=== PATIENT | female | born 1955 | race Hispanic/Latino ===

== ENCOUNTER → 2018-03-18 | Outpatient (CLI) | payer BC ==
[~2018-03-18] MED LIST: DIATRIZOATE MEGL/DIATRIZOA SOD 30 ML BTL PO ONE; IOPAMIDOL 370 MG/ML 200 ML INFUS..BTL INJ ONE; SODIUM CHLORIDE 0.9% 50ML 50 ML ONE
[2018-03-18 10:07] LABS: BLOOD UREA NITROGEN 14 mg/dL (7-26); BUN/CREATININE RATIO 17 (6-25); CREATININE, SERUM 0.83 mg/dL (0.57-1.11); EST GLOMERULAR FILTRATION RATE > 60 ML/MIN (60-)
--- NOTE | 2018-03-18 12:01 | Diagnostic Imaging Report ---
PROCEDURE: CT ABDOMEN AND PELVIS WITH CONTRAST TECHNIQUE: The abdomen and pelvis were scanned utilizing a multidetector helical scanner from the diaphragm to the lesser trochanter after the IV administration of 100 cc of Isovue 370 and the oral administration of Gastroview and water. Coronal and sagittal multiplanar reformations were obtained. COMPARISON: None. INDICATIONS: HERNIA FINDINGS: LOWER THORAX: Normal. HEPATOBILIARY: No focal hepatic lesions. No biliary ductal dilatation. SPLEEN: No splenomegaly. PANCREAS: No focal masses or ductal dilatation. ADRENALS: No adrenal nodules. KIDNEYS/URETERS: No hydronephrosis, stones, or solid mass lesions. PELVIC ORGANS/BLADDER: Unremarkable. PERITONEUM / RETROPERITONEUM: No free air or fluid. A bilobed azael-umbilical hernia is present with the fascial defect measuring 3.1 cm on series 300 image 74. Omental fat is noted within the hernia sac. No bowel is present in the hernia sac. Bilateral fat containing inguinal hernias, left greater than right, series 2 image 74. LYMPH NODES: No lymphadenopathy. VESSELS: Unremarkable. GI TRACT: No distention or wall thickening. Normal appendix. Moderate amount of retained feces limits intraluminal evaluation of the colon. BONES AND SOFT TISSUES: Unremarkable. IMPRESSION: 1. No acute abnormality of the abdomen and pelvis. 2. Umbilical hernia. Bilateral inguinal hernias. Dictated by: Segundo Hoyt M.D. on 03/18/2018 at 12:02 Electronically approved by: Segundo Hoyt M.D. on 03/18/2018 at 12:02
== END ==
LOC: CT 09:15
PROVIDERS: ATTEND Surgery
DX: K42.9 Umbilical hernia without obstruction or gangrene (principal); K40.20 Bilateral inguinal hernia, without obstruction or gangrene, not specified as recurrent
CPT/HCPCS: 36415; 74177; 82565; 84520; Q9967

== ENCOUNTER 2018-04-09 07:07 | Inpatient (IN) | payer BC ==
[~2018-04-09 07:07] MED LIST changes: -DIATRIZOATE MEGL/DIATRIZOA SOD 30 ML BTL PO ONE; -IOPAMIDOL 370 MG/ML 200 ML INFUS..BTL INJ ONE; +LISINOPRIL10 MG PO; -SODIUM CHLORIDE 0.9% 50ML 50 ML ONE
--- OUTSIDE RECORDS SUMMARY | 2018-04-09 07:09 | XMS REPORT ---
Author Author [facility], [place] Address Unknown Phone Unavailable Care Team Providers Care Quality Improvement Consultant Name Role Phone JUSTINO JULIEN Unavailable Unavailable Problems This patient has no known problems. Allergies, Adverse Reactions, Alerts This patient has no known allergies or adverse reactions. Medications This patient has no known medications. Results Test Description Test Time Test Comments Text Results Atomic Results Result Comments CT ABDOMEN/PELVIS W [place] [address] Patient Name: JASON MARTINI MR #: [id number] : 1955 Age/Sex: 62/F Req #: [id number] Adm Physician: Ordered by: JUSTINO JULIEN MD Report #: [id number] Location: CT Room/Bed: Procedure: [id number] CT/CT ABDOMEN/PELVIS W Exam Date: 03/18/18 Exam Time: 1020 REPORT STATUS: Signed PROCEDURE: CT ABDOMEN AND PELVIS WITH CONTRAST TECHNIQUE: The abdomen and pelvis were scanned utilizing a multidetector helical scanner from the diaphragm to the lesser trochanter after the IV administration of 100 cc of Isovue 370 and the oral administration of Gastroview and water. Coronal and sagittal multiplanar reformations were obtained. COMPARISON: None. INDICATIONS : HERNIA FINDINGS: LOWER THORAX: Normal. HEPATOBILIARY: No focal hepatic lesions. No biliary ductal dilatation. SPLEEN: No splenomegaly. PANCREAS: No focal masses or ductal dilatation. ADRENALS: No adrenal nodules. KIDNEYS/URETERS: No hydronephrosis, stones, or solid mass lesions. PELVIC ORGANS/BLADDER: Unremarkable. PERITONEUM / RETROPERITONEUM: No free air or fluid. A bilobed azael-umbilical hernia is present with the fascial defect measuring 3.1 cm on series 300 image 74. Omental fat is noted within the hernia sac. No bowel is present in the hernia sac. Bilateral fat containing inguinal hernias, left greater than right, series 2 image 74. LYMPH NODES: No lymphadenopathy. VESSELS: Unremarkable. GI TRACT: No distention or wall thickening. Normal appendix. Moderate amount of retained feces limits intraluminal evaluation of the colon. BONES AND SOFT TISSUES: Unremarkable. IMPRESSION: 1. No acute abnormality of the abdomen and pelvis. 2. Umbilical hernia. Bilateral inguinal hernias. Dictated by: Gilbert Canales M.D. on 2017 at 12:02 Electronically approved by: Gilbert Canales M.D. on 2017 at 12:02 Dictated By: GILBERT CANALES MD 1202 Transcribed By: PADMINI on 03/18/18 1202 COPY TO: JUSTINO JULIEN MD
[2018-04-09] MEDS ORDERED: BUPIVACAINE 0.25%/EPI 30ML SDV INJ ONE ×2 (08:20→14:45)
[2018-04-09] MEDS ORDERED: MIDAZOLAM HCL 2 MG/2 ML VIAL ONE (11:50)
[2018-04-09] MEDS ORDERED: FENTANYL CITRATE/PF 100MCG/2 ML INJ ONE (11:50)
[2018-04-09] MEDS ORDERED: NEOSTIGMINE 1 MG/ML 10ML VIAL ONE (14:27)
[2018-04-09] MEDS ORDERED: BACITRACIN 50,000 UNIT VIAL ONE (14:27)
[2018-04-09] MEDS: DEXTROSE 5%/LACTATED RINGERS 1,000 ML IV SCH ×2 (15:39→21:57)
[2018-04-09] MEDS ORDERED: HYDROMORPHONE 1MG/1ML INJ IV PRN (15:45)
[2018-04-09] MEDS ORDERED: ONDANSETRON HCL INJ 2 MG/ML VIAL IV PRN (15:45)
[2018-04-09] MEDS ORDERED: METOCLOPRAMIDE HCL 10 MG/2ML VIAL ONE (16:56)
[2018-04-09 17:00] VITALS: BP 152/66
[2018-04-09] MEDS ORDERED: HYDROMORPHONE 2MG/ML INJ IV PRN (17:00)
[2018-04-09] MEDS ORDERED: CEFAZOLIN SOD 1 GM/NS 50ML 50 ML IV SCH (18:00)
[2018-04-09] MEDS: CEFAZOLIN SOD 1 GM VIAL IV SCH ×2 (18:11→23:35)
[2018-04-09] MEDS: PANTOPRAZOLE 40 MG 10ML VIAL IV SCH (18:11)
[2018-04-09 18:38] VITALS: BP 135/67
[2018-04-09] MEDS ORDERED: ROCURONIUM BROMIDE 10 MG/ML 5ML VIAL ONE (18:51)
[2018-04-09] MEDS ORDERED: CEFAZOLIN SOD 1 GM VIAL ONE (18:51)
[2018-04-09] MEDS ORDERED: PROPOFOL IV EMULSION 10 MG/ML 20 ML VIAL ONE (18:51)
[2018-04-09] MEDS ORDERED: ONDANSETRON HCL INJ 2 MG/ML VIAL ONE (18:51)
[2018-04-09] MEDS ORDERED: KETOROLAC TROMETHAMINE 30 MG/ML VIAL ONE (18:51)
[2018-04-09] MEDS ORDERED: SEVOFLURANE INHAL SOLN 250 ML PEN BTL ONE (18:51)
[2018-04-09] MEDS ORDERED: LIDOCAINE HCL 2% LOCAL INJ 5 ML SDV VIAL INJ ONE (18:51)
[2018-04-09] MEDS ORDERED: DEXAMETHASONE SOD PHOS INJ 4 MG/ML VIAL ONE (18:51)
[2018-04-09 21:12] VITALS: BP 141/67
[2018-04-09 21:13] VITALS: BP 141/67
--- NOTE | 2018-04-09 23:04 | Operative Report ---
DATE OF PROCEDURE: April 09, 2018 PREOPERATIVE DIAGNOSIS: Ventral hernia. POSTOPERATIVE DIAGNOSIS: Ventral hernia. PROCEDURE PERFORMED: Scar revision and repair of ventral hernia with onlay mesh polypropylene. ANESTHESIA: General endotracheal. BECK OPERATOR: MONSTER Spencer ESTIMATED BLOOD LOSS: Less than 100 mL. DRAINS: Two 10-mm flat Serge-Weiss drain. COMPLICATIONS: None. INDICATIONS AND FINDINGS: The patient is a pleasant 62-year-old female, who had undergone laparoscopic cholecystectomy in the past and now presents with a herniation at the area of the umbilical port. Of note is the fact that this patient is obese and had 3 C-sections in the past. INTRAOPERATIVE FINDINGS: The patient had a ventral hernia located in the periumbilical area, where the pore was measured about 3 or 4 cm. Patient had a scar, had contracted in the lower aspect of the midline in the abdomen from the previous 3 C-sections and that required revision to properly close the skin. DESCRIPTION OF PROCEDURE: With the patient lying on the operative table in the supine position after administration of general anesthesia, she was prepped and draped for repair of ventral hernia at the umbilical port site. Elliptical incision was made around the old scar, which was contracted in the lower aspect of and the old scar where the contracture was excised down to the fat. The dissection was continued superiorly and inferiorly down to the fascia until we came across the hernia. The hernia sac was excised. It contained part omentum, small amounts of omentum, but it was empty and the sac was excised. The intra-abdominal cavity was entered and then, adhesions of omentum to the anterior abdominal wall were sharply lysed to free the abdominal wall for closure. After ascertaining that hemostasis was adequate, we closed the 4-cm defect with the series of interrupted 0-Ethibond sutures. We then reinforced the closure with an onlay placement of the polypropylene mesh 66 x 6. We secured the mesh with a series of interrupted 2-Ethibond sutures and then also applied absorbable Ethicon martin to secure the closure. The patient was then given a regional block with a total of 40 mL of Marcaine with epinephrine into the fascia and the skin and then the wound was closed in layers using combination of 0 and 2-0 catgut chromic for the soft tissues. The skin was closed using a combination of 2-0 and 3-0 silk. Two 10-mm flat Serge-Weiss drains were placed to drain the wound and brought out through a stab wound in the right and left lower quadrant of the abdomen and secured there with 3-0 silk. Sterile dressing was applied. The patient tolerated the procedure well, was taken to recovery room in stable condition. At the end of the procedure, I could not find anyone in the waiting area for the patient. Job#: [id number] CQ
[2018-04-10] VITALS (8 sets, daily range): BP systolic 135–160; BP diastolic 57–75
[2018-04-10] MEDS: CEFAZOLIN SOD 1 GM VIAL IV SCH ×4 (05:37→23:40)
[2018-04-10 05:53] LABS: BASOPHILS % 0.2 % (0.0-1.0); HEMATOCRIT 38.9 % (34.2-44.1); HEMOGLOBIN 12.7 g/dL (12.0-16.0); LYMPHOCYTES # (AUTO) 1.9 (1.0-3.2); LYMPHOCYTES % 16.1 % (18.0-39.1); MEAN CORPUSCULAR HEMOGLOBIN 28.3 pg (28-32); MEAN CORPUSCULAR HGB CONC 32.6 g/dL (31-35); MEAN CORPUSCULAR VOLUME 86.6 fL (81-99); MONOCYTES # (AUTO) 1.1 (0.2-0.8); MONOCYTES % 8.9 % (4.4-11.3); NEUTROPHILS # (AUTO) 8.8 (2.1-6.9); NEUTROPHILS % 74.5 % (38.7-80.0); PLATELET COUNT 226 x10e3/uL (140-360); RED BLOOD COUNT 4.49 x10e6/uL (3.6-5.1); RED CELL DISTRIBUTION WIDTH 12.9 % (11.7-14.4)
[2018-04-10 06:11] LABS: BLOOD UREA NITROGEN 16 mg/dL (7-26); BUN/CREATININE RATIO 21 (6-25); CALCIUM 8.6 mg/dL (8.4-10.2); CARBON DIOXIDE 24 mmol/L (22-29); CHLORIDE 105 mmol/L (98-107); CREATININE, SERUM 0.77 mg/dL (0.57-1.11); EST GLOMERULAR FILTRATION RATE > 60 ML/MIN (60-); GLUCOSE 153 mg/dL (74-118); SODIUM 138 mmol/L (136-145)
[2018-04-10] MEDS: DEXTROSE 5%/LACTATED RINGERS 1,000 ML IV SCH ×2 (08:39→19:05)
[2018-04-10] MEDS: PANTOPRAZOLE 40 MG 10ML VIAL IV SCH (17:17)
[2018-04-10] MEDS: ONDANSETRON HCL 4 MG ORAL DISINTEGRATING TAB SL PRN (18:22)
[2018-04-10] MEDS ORDERED: PROMETHAZINE 12.5MG/ NACL 0.9% 12.5 MG/50 ML BAG IV PRN (18:30)
[2018-04-10] MEDS: HYDROCODONE/APAP 7.5MG-325MG 1 EA TAB PO PRN (23:43)
[2018-04-11] VITALS (7 sets, daily range): BP systolic 130–166; BP diastolic 68–89
[2018-04-11] MEDS: CEFAZOLIN SOD 1 GM VIAL IV SCH ×4 (05:40→23:18)
[2018-04-11] MEDS: HYDROCODONE/APAP 7.5MG-325MG 1 EA TAB PO PRN ×4 (05:40→21:16)
[2018-04-11 06:03] LABS: BASOPHILS % 0.3 % (0.0-1.0); EOSINOPHILS % 0.1 % (0.0-6.0); HEMATOCRIT 38.8 % (34.2-44.1); HEMOGLOBIN 12.4 g/dL (12.0-16.0); LYMPHOCYTES # (AUTO) 1.7 (1.0-3.2); LYMPHOCYTES % 18.5 % (18.0-39.1); MEAN CORPUSCULAR HEMOGLOBIN 28.7 pg (28-32); MONOCYTES # (AUTO) 0.8 (0.2-0.8); MONOCYTES % 8.1 % (4.4-11.3); NEUTROPHILS # (AUTO) 6.8 (2.1-6.9); NEUTROPHILS % 72.5 % (38.7-80.0); PLATELET COUNT 206 x10e3/uL (140-360); RED BLOOD COUNT 4.32 x10e6/uL (3.6-5.1); RED CELL DISTRIBUTION WIDTH 13.1 % (11.7-14.4)
[2018-04-11 06:07] LABS: MEAN CORPUSCULAR VOLUME 89.8 fL (81-99)
[2018-04-11 06:34] LABS: ANION GAP 11.2 mmol/L (8-16); BLOOD UREA NITROGEN 12 mg/dL (7-26); BUN/CREATININE RATIO 15 (6-25); CALCIUM 8.9 mg/dL (8.4-10.2); CARBON DIOXIDE 25 mmol/L (22-29); CHLORIDE 105 mmol/L (98-107); CREATININE, SERUM 0.79 mg/dL (0.57-1.11); EST GLOMERULAR FILTRATION RATE > 60 ML/MIN (60-); GLUCOSE 151 mg/dL (74-118); POTASSIUM 4.2 mmol/L (3.5-5.1); SODIUM 137 mmol/L (136-145)
[2018-04-11] MEDS: ONDANSETRON HCL 4 MG ORAL DISINTEGRATING TAB SL PRN ×2 (13:25→18:14)
[2018-04-11] MEDS: DEXTROSE 5%/LACTATED RINGERS 1,000 ML IV SCH (13:47)
[2018-04-11] MEDS: PANTOPRAZOLE 40 MG 10ML VIAL IV SCH (15:33)
[2018-04-12 00:56] VITALS: BP 121/57
[2018-04-12 04:00] VITALS: BP 123/61
[2018-04-12] MEDS: HYDROCODONE/APAP 7.5MG-325MG 1 EA TAB PO PRN ×2 (05:00→11:45)
[2018-04-12] MEDS: CEFAZOLIN SOD 1 GM VIAL IV SCH (06:02)
[2018-04-12 07:22] LABS: BASOPHILS % 0.2 % (0.0-1.0); EOSINOPHILS # (AUTO) 0.1 (0.0-0.4); EOSINOPHILS % 0.6 % (0.0-6.0); HEMATOCRIT 38.8 % (34.2-44.1); HEMOGLOBIN 12.4 g/dL (12.0-16.0); LYMPHOCYTES # (AUTO) 1.8 (1.0-3.2); LYMPHOCYTES % 20.6 % (18.0-39.1); MEAN CORPUSCULAR HEMOGLOBIN 28.6 pg (28-32); MEAN CORPUSCULAR VOLUME 89.6 fL (81-99); MONOCYTES # (AUTO) 0.5 (0.2-0.8); MONOCYTES % 6.1 % (4.4-11.3); NEUTROPHILS # (AUTO) 6.3 (2.1-6.9); PLATELET COUNT 215 x10e3/uL (140-360); RED BLOOD COUNT 4.33 x10e6/uL (3.6-5.1); RED CELL DISTRIBUTION WIDTH 12.9 % (11.7-14.4)
[2018-04-12 07:39] LABS: ANION GAP 11.3 mmol/L (8-16); BLOOD UREA NITROGEN 14 mg/dL (7-26); BUN/CREATININE RATIO 18 (6-25); CALCIUM 8.8 mg/dL (8.4-10.2); CARBON DIOXIDE 29 mmol/L (22-29); CHLORIDE 101 mmol/L (98-107); CREATININE, SERUM 0.79 mg/dL (0.57-1.11); EST GLOMERULAR FILTRATION RATE > 60 ML/MIN (60-); GLUCOSE 145 mg/dL (74-118); POTASSIUM 4.3 mmol/L (3.5-5.1); SODIUM 137 mmol/L (136-145)
[2018-04-12 08:12] VITALS: BP 153/66
[2018-04-12] MEDS: DEXTROSE 5%/LACTATED RINGERS 1,000 ML IV SCH (10:41)
[2018-04-12 11:30] VITALS: BP 158/74
[2018-04-12 11:45] VITALS: BP 153/66
--- NOTE | 2018-04-12 14:14 | Discharge Summary ---
DISCHARGE DIAGNOSIS: Ventral hernia. PROCEDURE PERFORMED: On admission, scar revision and repair of ventral hernia with onlay polypropylene mesh by Dr. Sarina Yeung. HISTORY OF PRESENT ILLNESS AND HOSPITALIZATION COURSE: The patient is a pleasant 62-year-old female who had undergone laparoscopic cholecystectomy in the past by me, and now presents with herniation in the area of the umbilical port. Of note is the fact that this patient is obese and had 3 C-sections in the past. HOSPITALIZATION COURSE: Following admission, the patient underwent the previously described procedure on the previously described date. Postoperative course was unremarkable. The patient's diet was advanced, and she was tolerating a regular diet the day of discharge. She was afebrile. Two Serge-Weiss drains that were placed in the wound were removed the day of discharge. She was discharged with no work tolerance for 8 weeks postop. She was given instructions. She will be followed up with my office following discharge to remove martin. DISCHARGE MEDICATIONS: Tylenol No.3 one p.o. q.4-6 h. p.r.n. for pain, #40, and Phenergan 1 p.o. q.4-6 h. p.r.n. for nausea, #20, no refills. JUSTINO YEUNG MD Job#: [id number] [place]
== END 2018-04-12 12:00 | disposition home or self-care (01) | DRG 355 ==
LOC: OR 07:07 → IMCU 16:18 → OBSVTOIN 04-11 08:41 → MED/SURG 04-11 13:28
PROVIDERS: ADMIT Surgery; ATTEND Surgery
PROC: 0WUF0JZ Supplement Abdominal Wall with Synthetic Substitute, Open Approach (ICD-10-PCS; principal; 2018-04-09 12:15)
DX: K43.9 Ventral hernia without obstruction or gangrene (principal); E66.9 Obesity, unspecified; I10 Essential (primary) hypertension
CPT/HCPCS: 36415; 80048; 85025; 88302; 88304; C1781; G0378; J0690; J1100; J1885; J2001; J2250; J2405; J2710; J2765; J7120

== ENCOUNTER → 2019-07-09 | Day surgery (SDC) | payer BC ==
[~2019-07-09] MED LIST changes: +EPHEDRINE SULFATE INJ 50 MG/10 ML SYR ONE; +FENTANYL CITRATE/PF 100MCG/2 ML INJ ONE; +HYOSCYAMINE 0.125 MG TAB ONE; +LIDOCAINE HCL 2% LOCAL INJ 5 ML SDV VIAL INJ ONE; +PROPOFOL IV EMULSION 10 MG/ML 50 ML VIAL ONE; +VITAMIN A10000 UNIT PO; +calcium PO
[2019-07-09 15:05] VITALS: BP 141/57
--- NOTE | 2019-07-09 17:18 | Operative Report ---
DATE OF PROCEDURE: 07/09/2019 SURGEON: Aristeo Suarez MD PROCEDURE: Colonoscopy. INDICATIONS FOR COLONOSCOPY: Colorectal cancer screening. MEDICATIONS: The patient was done under MAC, please see anesthesiologist's note. PROCEDURE IN DETAIL: With the patient in left lateral decubitus position, the flexible fiberoptic Olympus colonoscope was inserted into the rectum with ease and advanced all the way to the cecum. Scope was then withdrawn slowly. Mucosa overlying the cecum, ascending colon, transverse colon, and descending colon appeared to be within normal limits. A minute diverticulum was noted in the sigmoid colon. The rectum grossly appeared to be within normal limits. The scope was then retroflexed into the distal rectum and small internal hemorrhoids were noted, none of which was actively bleeding. The scope was then straightened out, it was subsequently withdrawn. The patient tolerated the procedure well. IMPRESSION: 1. Diverticulosis, minimal. 2. Internal hemorrhoids, none actively bleeding. PLAN: Initiate high-fiber, low-fat diet. Initiate high-fiber supplement. The patient might benefit from a followup colonoscopy in 10 years. Aristeo Suarez MD [facility] [place]/JEANEL /[id number] cc: Juan Rodriguez
== END | disposition home or self-care (01) ==
LOC: OR 11:00
PROVIDERS: ATTEND Internal Medicine Gastroenterology
DX: Z12.11 Encounter for screening for malignant neoplasm of colon (principal); K57.30 Diverticulosis of large intestine without perforation or abscess without bleeding; K64.8 Other hemorrhoids; I10 Essential (primary) hypertension; Z68.41 Body mass index [BMI] 40.0-44.9, adult; Z88.8 Allergy status to other drugs, medicaments and biological substances; E03.9 Hypothyroidism, unspecified; E66.01 Morbid (severe) obesity due to excess calories; Z01.810 Encounter for preprocedural cardiovascular examination
CPT/HCPCS: 45378; 93005; J2001; J2704; J3010